=== PATIENT | male | born 1990 | race Caucasian/White ===

== ENCOUNTER 2025-01-24 12:23 | Emergency (ER) | payer SELFPAY ==
[2025-01-24 12:35] VITALS: BP 116/64; BP 118/68; PULSE 65; PULSE 70; RESP 11; TEMP 36.7; O2SAT 98; BMI 18.3
--- NOTE | 2025-01-24 12:50 | ECG_ITS ---
Test Reason : syncope Blood Pressure : */* mmHG Vent. Rate : 71 BPM Atrial Rate : 71 BPM P-R Int : 138 ms QRS Dur : 90 ms QT Int : 376 ms P-R-T Axes : 55 76 42 degrees QTcB Int : 408 ms Normal sinus rhythm Normal ECG When compared with ECG of 12-Apr-2013 02:51, No significant change was found Referred By: Isabella Sigala Electronically Signed By: Santiago Nolan
[2025-01-24 13:16] LABS: MANUAL DIFF FLAG NO
[2025-01-24 13:19] LABS: Hematocrit 39.9 % (42.0-52.0); Hemoglobin 14.1 g/dl (14.0-18.0); Imm Gran Abs Auto 0.02 X10*3/uL (0.00-0.03); Imm Gran Pct Auto 0.2 % (0.0-0.4); Lymphocytes Absolute Auto 1.6 X10*3/uL (1.2-4.9); Mean Corpuscular HGB Conc 35.3 g/dl (31.0-36.0); Mean Corpuscular Hemoglobin 32.7 pg (27.0-33.0); Mean Corpuscular Volume 92.6 fL (80.0-98.0); NRBC Abs Auto 0.000 X10*3/uL (0.0-0.012); NRBC Pct Auto 0.0 /100WBC (0.0-0.2); Platelet Count 176 X10*3/uL (160-400); Red Blood Count 4.31 X10*6/uL (4.60-5.80); White Blood Count 8.3 X10*3/uL (4.8-10.8)
--- NOTE | 2025-01-24 13:23 | ED.GENADULT ---
[facility] - General Adult General Chief complaint: Syncope Stated complaint: WIT SYNCOPY Time Seen by Provider: 01/24/25 13:23 Source: patient Mode of arrival: ambulatory Limitations: no limitations History of Present Illness ED Provider: Dr. Alexander [facility] narrative: This is a 34-year-old male presented hospital today for a syncopal episode. Patient was at breakfast it was girlfriend today we had a sudden onset of syncopal episode. Denies any chest pain or palpitation prior to syncope. The patient stated that he felt a warm sensation come on and closing of his visions. Girlfriend stated that he had lost consciousness approximately for 1-2 minutes. He was staring off. Patient has not been workup for syncope in the past. See any denies any headaches. Denies any recent illness. Denies any vomiting denies any diarrhea. Related Data Allergies Allergy/AdvReac Type Severity Reaction Status Date / Time No Known Allergies Allergy Unverified 01/24/25 12:37 Review of Systems Review of Systems: Pertinent review of systems as mentioned in HPI. All other system otherwise negative. [facility] Past Medical History [facility] Narrative: None Social History Social History Advance Directives: No Advance Directives Information Provided: Yes Do you have a plan to hurt others: No Plan Physical Exam ED Exam Exam: General: Pleasant, no distress, interacting appropriately Head: Normacephalic, atraumatic ENT: oral mucosa moist, neck supple, no tracheal deviation Cardiovascular: regular rate, regular rhythm, no murmurs, rubbing, gallops Respiratory: CTAB, no wheeze, rales, rhonchi Neurological: Awake and alert, no facial droop noted, no focal neurological deficit Skin: Warm and dry Psychiatric: Appropriate mood and thoughts Vital Signs: Vital Signs - 24 hr 01/24/25 12:35 01/24/25 13:47 Temperature 98.1 F Pulse Rate 65 84 Respiratory Rate 11 L 14 Blood Pressure 116/64 102/54 L Pulse Oximetry 98 99 Oxygen Delivery Method Room Air Room Air BMI result Body Mass Index 18.3 Medical Decision Making Medical Decision Making [facility] Narrative: 34-year-old male presented hospital today for a syncopal episode. Patient's EKG did not show any signs of significant cardiac arrhythmia. Blood pressure stable at this time. Patient appears to be in no acute distress. He is not having any headaches. No nausea or vomiting. Patient is asymptomatic at this time. I suspect patient likely has a vasovagal syncope. I did consider getting a CT head imaging however the mechanism is not significant for acute intracranial injury. He does not complain of headaches. Review patient's lab work. No sign of significant anemia, patient has no signs of electrolyte abnormality. We will plan to discharge patient at this time referral to primary care doctor will be provided the patient. Encouraged him to follow up for further syncopal workup. Differential Diagnosis Differential Diagnoses: The differential diagnosis associated with the presentation includes Syncopal episode, seizure-like activity, closed head injury Lab Data 01/24/25 13:10 01/24/25 13:10 Labs: Lab Results 01/24/25 Range/Units 13:10 WBC 8.3 (4.8-10.8) X10*3/uL RBC 4.31 L (4.60-5.80) X10*6/uL Hgb 14.1 (14.0-18.0) g/dl Hct 39.9 L (42.0-52.0) % MCV 92.6 (80.0-98.0) fL MCH 32.7 (27.0-33.0) pg MCHC 35.3 (31.0-36.0) g/dl RDW 13.0 (11.0-16.0) % Plt Count 176 (160-400) X10*3/uL MPV 10.2 (9.4-12.4) fL Immature Gran % (Auto) 0.2 (0.0-0.4) % Neut % (Auto) 75.0 H (45-73) % Lymph % (Auto) 18.9 L (20-40) % Sebastian % (Auto) 4.8 (2-11) % Eos % (Auto) 0.5 (0-4) % Baso % (Auto) 0.6 (0-2) % Lymph # (Auto) 1.6 (1.2-4.9) X10*3/uL Sebastian # (Auto) 0.4 (0.1-1.2) X10*3/uL Eos # (Auto) 0.0 (0.0-0.4) X10*3/uL Baso # (Auto) 0.1 (0.0-0.2) X10*3/uL Abs Immat Gran (auto) 0.02 (0.00-0.03) X10*3/uL Absolute Neuts (auto) 6.2 (2.0-8.3) x10*3/uL Absolute Nucleated RBC 0.000 (0.0-0.012) X10*3/uL Nucleated RBC % (auto) 0.0 (0.0-0.2) /100WBC Sodium 142 (135-145) mmol/L Potassium 3.6 (3.3-5.1) mmol/L Chloride 107 (96-108) mmol/L Carbon Dioxide 30 H (22-29) mmol/L Anion Gap 9 L (12-20) BUN 17 H (9-16) mg/dL Creatinine 0.81 (0.5-1.4) mg/dL Estim Creat Clear Calc 94.3 Estimated GFR > 60 Random Glucose 134 H (60-115) mg/dL Calcium 9.3 (8.4-10.2) mg/dL Magnesium 2.0 (1.6-2.6) mg/dL Total Bilirubin 1.2 H (0.0-1.0) mg/dL AST 24 (5-37) U/L ALT 15 (0-40) U/L Alkaline Phosphatase 69 (39-117) U/L Troponin I High Sens 2.7 (<3.5-35.0) ng/L Total Protein 6.9 (6.5-8.0) g/dL Albumin 4.7 (3.5-5.0) g/dL Independent Interpretation I performed an independent interpretation of an: EKG Discharge Plan Discharge Clinical Impression: Vasovagal syncope Patient Disposition: Home, Self-Care Instructions: Syncope (ED) Additional Instructions: Follow up with primary care office for further evaluation. I suspect you had passed out. You may ask for a holter monitor to rule out for cardiac arryythmia. May sure to stay well hydrated. Drink 64 ounces of fluid a day. [place]: [facility] [place] [facility] [place] Group, Internal Medicine] Print Language: Greek
[2025-01-24 13:38] LABS: Alanine Aminotransferase 15 U/L (0-40); Albumin Level 4.7 g/dL (3.5-5.0); Alkaline Phosphatase 69 U/L (39-117); Anion Gap 9 (12-20); Aspartate Amino Transferase 24 U/L (5-37); Blood Urea Nitrogen 17 mg/dL (9-16); Calcium 9.3 mg/dL (8.4-10.2); Carbon Dioxide 30 mmol/L (22-29); Chloride 107 mmol/L (96-108); Creatinine Clr Calc Pharmacy 94.3; Estimated Glomerular Filt Rate > 60; Magnesium 2.0 mg/dL (1.6-2.6); Potassium 3.6 mmol/L (3.3-5.1); Sodium 142 mmol/L (135-145); Total Protein 6.9 g/dL (6.5-8.0)
[2025-01-24 13:40] LABS: Troponin-I High Sensitivity 2.7 ng/L (<3.5-35.0)
[2025-01-24 13:47] VITALS: BP 102/54; PULSE 84; RESP 14; O2SAT 99
[2025-01-24 14:55] VITALS: BP 102/54; PULSE 69; RESP 14; TEMP -17.7; TEMP 0; O2SAT 98
--- OUTSIDE RECORDS SUMMARY | 2025-01-24 16:40 | XMS_ITS | Clinical Summary ---
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 Phone Unavailable Primary Care Provider Unavailabl e Social History Tobacco Use Types Packs/Day Years Used Date Smoking Tobacco: Never Assessed Sex and Gender Information Value Date Recorded Sex Assigned at Not on file Legal Sex Male 4:53 AM EST Gender Identity Not on file Sexual Orientation Not on file Plan of Treatment Health Maintenance Due Date Last Done Comments DTaP,Tdap,and Td Vaccines (1 - Tdap) 10/21/2010 Hepatitis B Vaccines (1 of 3 - 19+ 3-dose series) 10/21/2010 HPV Vaccines (1 - 3-dose SCD M series) 10/21/2018 Depression Screening 03/21/2024 COVID-19 Vaccine (1 - 2023-2 5 season) 2024 Influenza Vaccine (#1) 2024 RSV Immunization Adult Patie nts (1 - 1-dose 75+ series) 10/21/2066 HIB Vaccines Aged Out No longer eligi ble based on patient's age to complete this topic Hepatitis A Vaccines Aged Out No long er eligible based on patient's age to complete this topic IPV Vaccines Aged Out No longer eligi ble based on patient's age to complete this topic MMR Vaccines Aged Out No longer eligi ble based on patient's age to complete this topic Meningococcal ACWY Vaccine Aged Out N o longer eligible based on patient's age to complete this topic Meningococcal B Vaccine Aged Out No l onger eligible based on patient's age to complete this topic Pneumococcal Vaccine: Pediat rics (0 to 5 Years) and At-Risk Patients (6 to 49 Years) Aged Out No longer eligible b ased on patient's age to complete this topic RSV Immunization Patients Un bassam 20 months Aged Out No longer eligible b ased on patient's age to complete this topic Varicella Vaccines Aged Out No longer eligible based on patient's age to complete this topic
--- OUTSIDE RECORDS SUMMARY | 2025-01-24 16:40 | XMS_ITS | Clinical Summary ---
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 Phone Unavailable Primary Care Provider Unavailabl e Social History Tobacco Use Types Packs/Day Years Used Date Smoking Tobacco: Never Assessed Sex and Gender Information Value Date Recorded Sex Assigned at Male 01/18/2022 10:17 AM EDT Legal Sex Male 10:17 AM EDT Gender Identity Not on file Sexual Orientation Not on file Plan of Treatment Health Maintenance Due Date Last Done Comments Depression Screening 1991 Disability Screening 1991 Alcohol/Substance Use Screening 2003 Tobacco Screening 2003 Family Planning (PISQ) 10/21/2006 HPV Vaccines (1 - Male 3-dos e series) 10/21/2006 Hepatitis B Vaccines (1 of 3 - 19+ 3-dose series) 10/21/2010 DTaP/Tdap/Td Vaccines (1 - Tdap) 02/07/2014 02/07/20 14 COVID-19 Vaccine (1 - 2023-2 5 season) 2024 Influenza Vaccine (#1) 2024 Zoster Vaccines (1 of 2) 10/21/2041 RSV Patients and Pa tients Aged 60 years or older (1 - 1-dose 75+ series) 10/21/2066 HIB [...] patient's age to complete this topic Meningococcal Vaccine Aged Out No jayy augie eligible based on patient's age to complete this topic Pneumococcal Vaccine: Pediat rics (0 to 5 Years) and At-Risk Patients (6 to 49) Years Aged Out No longer eligi ble based on patient's age to complete this topic RSV under 20 months Aged Out No longe r eligible based on patient's age to complete this topic Rotavirus Vaccines Aged Out No longer eligible based on patient's age to complete this topic
== END 2025-01-24 14:55 | disposition home or self-care (01) ==
PROVIDERS: Physician Assistant Medical; Emergency Provider Student in an Organized Health Care Education/Training Program
DX: R55 Syncope and collapse (principal)
CPT/HCPCS: 36415; 80053; 83735; 84484; 85025; 93005; 99283; 99285

== ENCOUNTER → 2025-01-24 12:50 | Outpatient (BNV) | payer SELFPAY | PROVIDERS: Emergency Provider Student in an Organized Health Care Education/Training Program; Visit Provider Internal Medicine Cardiovascular Disease | DX: R55 Syncope and collapse (principal) | CPT/HCPCS: 93010 ==